=== PATIENT | female | born 1950 | race Caucasian/White ===

== ENCOUNTER 2021-09-17 10:21 | Outpatient (CLI) | payer MEDICARE, BC, SELFPAY | END 2021-09-17 10:22 | disposition home or self-care (01) | LOC: FRMREF 10:24 | PROVIDERS: Visit Provider Family Medicine | DX: I10 Essential (primary) hypertension (principal); I48.91 Unspecified atrial fibrillation; E11.9 Type 2 diabetes mellitus without complications | CPT/HCPCS: 80048 ==

== ENCOUNTER 2022-12-08 08:24 | Outpatient (CLI) | payer MEDICARE, BC, SELFPAY | END 2022-12-08 08:25 | disposition home or self-care (01) | PROVIDERS: PCP Family Medicine; Visit Provider Family Medicine | DX: Z00.00 Encounter for general adult medical examination without abnormal findings (principal); I10 Essential (primary) hypertension; R73.9 Hyperglycemia, unspecified; Z13.6 Encounter for screening for cardiovascular disorders; Z11.59 Encounter for screening for other viral diseases | CPT/HCPCS: 80053; 80061; 86803 ==

== ENCOUNTER 2024-01-05 10:40 | Outpatient (CLI) | payer MEDICARE, BC, SELFPAY | END 2024-01-05 10:41 | disposition home or self-care (01) | PROVIDERS: PCP Family Medicine; Visit Provider Family Medicine | DX: I10 Essential (primary) hypertension (principal) | CPT/HCPCS: 80048; 82043; 82570 ==

== ENCOUNTER 2024-04-11 10:25 | Outpatient (BNVA) | payer OTHER, SELFPAY | END 2024-04-11 22:00 | disposition home or self-care (01) | PROVIDERS: PCP Family Medicine; Referring Provider Family Medicine; Visit Provider Family Medicine | DX: N39.0 Urinary tract infection, site not specified (principal); I10 Essential (primary) hypertension; Z01.818 Encounter for other preprocedural examination | CPT/HCPCS: 87086; 87186 ==

== ENCOUNTER 2025-02-13 10:27 | Outpatient (CLI) | payer MEDICARE, BC, SELFPAY | END 2025-02-13 10:28 | disposition home or self-care (01) | PROVIDERS: PCP Family Medicine; Visit Provider Family Medicine | DX: I10 Essential (primary) hypertension (principal) | CPT/HCPCS: 80053; 80061; 82043; 82570 ==